=== PATIENT | female | born 1950 | race Hispanic/Latino ===

== ENCOUNTER 2022-07-24 10:54 | Emergency (ER) | payer MEDICARE ==
[~2022-07-24] VITALS: Ht 149.9 cm; Wt 74.8 kg
[2022-07-24] MEDS ORDERED: TRAMADOL HCL 50 MG TAB PO ONE (11:45)
[2022-07-24] MEDS ORDERED: ULTRAM 50MG50 MG PO (13:37)
[2022-07-24 14:14] VITALS: BP 108/80
== END 2022-07-24 14:00 | disposition home or self-care (01) ==
LOC: ER 13:12
DX: M25.552 Pain in left hip (principal); M16.12 Unilateral primary osteoarthritis, left hip; M17.12 Unilateral primary osteoarthritis, left knee
CPT/HCPCS: 93971; 99283